=== PATIENT | male | born 2000 | race Caucasian/White ===

== ENCOUNTER 2021-05-16 12:43 | Emergency (ER) | payer OTHER ==
--- NOTE | 2021-05-16 13:48 | XRAY Report ---
PROCEDURE: Finger(s) RT INDICATIONS: Trauma TECHNIQUE: PA hand, 2 views of the small finger acquired. COMPARISON: None. FINDINGS: Bones: There is a minimally displaced fracture at the tuft of the fifth distal phalanx. No suspicious bony lesions. Soft tissues: No suspicious soft tissue calcifications. IMPRESSION: Minimally displaced fracture of the tuft of the fifth distal phalanx. Reviewed by: Vahid Monahan MD on 05/16/2021 12:46 PM AKDT Approved by: Vahid Monahan MD on 05/16/2021 12:46 PM AKDT Station ID: [id number]
--- NOTE | 2021-05-16 14:15 | ED Physician Documentation ---
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 He dropped a heavy object on his right pinky while working just prior to arrival. No other injuries. Pain is severe. He is up-to-date on tetanus. Review of Systems Constitutional: reports: Reviewed and negative Cardiac: reports: Reviewed and negative Respiratory: reports: Reviewed and negative PD PAST MEDICAL HISTORY - Past Medical History Past Medical History: No - Past Surgical History Past Surgical History: No - Present Medications Home Medications: Ambulatory Orders Medication Instructions Recorded Confirmed HYDROcod/ACETAM 5/325 [Howard 5/325] 1 - 2 tab PO Q6H PRN #15 tablet 05/16/21 cephALEXin [Keflex] 500 mg PO Q6H #20 cap 05/16/21 - Allergies Allergies/Adverse Reactions: Allergies Allergy/AdvReac Type Severity Reaction Status Date / Time No Known Drug Allergies Allergy Verified 05/16/21 13:07 - Social History Does the pt smoke?: No Smoking Status: Never smoker Does the pt drink ETOH?: No Does the pt have substance abuse?: No - Immunizations Immunizations are current?: Yes PD ED PE NORMAL - Vitals Vital signs reviewed: Yes - General General: Alert and oriented X 3, No acute distress - Extremities Extremities: Other (The tip of the right pinky is swollen and there is jagged blunt force type laceration on the palmar surface with intact tendon strength and no distal neurovascular compromise.) - Neuro Neuro: Alert and oriented X 3, Normal speech Results - Vitals Vitals: Vital Signs - 24 hr 05/16/21 13:04 Temperature 36.8 C Heart Rate 112 H Respiratory 16 Rate Blood Pressure 162/82 H O2 Saturation 99 Oxygen O2 Source Room air Procedures - Laceration (location) R 5th finger Length in cm: 3 Wound type: Irregular (Jagged stellate laceration measuring 3 cm, On the palmar surface of the right pinky spanning the DIP.) Neurovascular status: Sensory intact, Motor intact, Vascular intact Anesthesia: Lidocaine 1% with epi (Digital block in standard fashion with excellent anesthesia) Wound preparation: Hibiclens, Irrigated copiously NS, Debrided moderately (A small amount of skin and fat had to be debrided to allow closure.) Skin layer closure: Nylon, Interrupted, Size #-0 - enter number (4-0), Sutures - enter # (6) Other: Patient tolerated well, No complications, Neurovascular intact, Tetanus UTD - Splint (location) R 5th finger Splint applied by: Tech Type of splint: Metal foam finger splint Departure - Departure Disposition: 01 Home, Self Care Clinical Impression: Open fracture of phalanx of digit of hand Qualifiers: Encounter type: initial encounter Qualified Code(s): S62.609B - Fracture of unspecified phalanx of unspecified finger, initial encounter for open fracture Finger laceration Qualifiers: Encounter type: initial encounter Finger: little finger Damage to nail status: with damage Foreign body presence: without foreign body Laterality: right Qualified Code(s): S61.316A - Laceration without foreign body of right little finger with damage to nail, initial encounter Condition: Good Record reviewed to determine appropriate education?: Yes Instructions: ED Fx Finger Open, ED Laceration Hand Prescriptions: cephALEXin [Keflex] 500 mg PO Q6H #20 cap HYDROcod/ACETAM 5/325 [Howard 5/325] 1 - 2 tab PO Q6H PRN #15 tablet PRN Reason: Pain Comments: You can keep the current dressing and splints on until Wednesday at which time you can wash briefly with soap and water and then put bacitracin ointment on it which is available [id number]. Then a large Band-Aid and replace the metal foam finger splint. You should have the sutures removed in about 14 days, [place] I sent prescriptions for antibiotics and painkillers to the [facility] pharmacy at the [place] [id number] and [facility] here in [place]. I am prescribing a short course of narcotic pain medication for you. These are potentially dangerous and addictive medications that should be used carefully. These medications may constipate you. Take an tzxm-qlv-vrrfbfe stool softener (docusate) twice daily with plenty of water while taking these medications. If you go 24 hours without a bowel movement, take awnt-ubu-oosovji miralax, per package instructions. Do not drink or drive while taking these medications. If you received narcotic or sedating medications while in the emergency department, do not drive for 24 hours. Store this medication in a safe, secure place and out of reach of children. It is a violation of federal law to give or sell this medication to another person or to use in a manner other than prescribed. The ED will not refill narcotic prescriptions, including prescriptions lost or stolen. To dispose of unwanted medications: 1. [facility] at [address] in [place] has a medication drop box. They accept prescription medications (in pill form) Wednesday through Wednesday 9:00 a.m. to 5:00 p.m. 2. The [facility] accepts prescription medications (in pill form only) for disposal year round. Call for more information. 3. Contact the [facility] for the next [facility] sponsored prescription drug collection event. , [phone], or [phone]; Note that many narcotic pain relievers also contain Tylenol/acetaminophen. Please ensure that your total dose of acetaminophen from all sources does not exceed 3 g (3000 mg) per day. Forms: Activity restrictions
[2021-05-16] MEDS: cephALEXin 250 MG CAPSULE PO STA (14:46)
[2021-05-16 15:05] VITALS: BP 148/75
== END 2021-05-16 15:05 | disposition home or self-care (01) ==
LOC: ED 12:43
DX: S62.606B Fracture of unspecified phalanx of right little finger, initial encounter for open fracture (principal); W20.8XXA Other cause of strike by thrown, projected or falling object, initial encounter; Y99.1 Military activity
CPT/HCPCS: 12002; 73140; 99283; A9270

== ENCOUNTER 2021-07-09 10:42 | Outpatient (CLI) | payer OTHER ==
--- NOTE | 2021-07-09 15:42 | MRI Report ---
PROCEDURE: Hand RT W/O INDICATIONS: RIGHT LITTLE FINGER LAC TECHNIQUE: Noncontrast coronal T1 spin echo and T2 fast spin echo with fat saturation, axial proton density fast spin echo and T2 fast spin echo with fat saturation, sagittal T1 spin echo and STIR through the hand and fingers. COMPARISON: Finger radiographs 05/16/2021. FINDINGS: Image quality: Excellent. Bones: Mild osseous edema is seen within the fifth middle and distal phalanges. Remaining visualized osseous structures are normal in signal intensity. No intra-osseous lesions. Soft tissues: Mild subcutaneous soft tissue edema is seen in the volar aspect of the fifth finger at the level of the middle phalanx. The fifth flexor digitorum superficialis and profundus are intact. V isualized muscles demonstrate normal bulk and internal signal. No intramuscular masses identified. No ganglion cysts. IMPRESSION: 1.Mild osseous edema in the fifth middle and distal phalanges may be related to prior contusions or h ealing nondisplaced fractures. Mild subcutaneous soft tissue edema at the volar aspect of the fifth f zak. 2.No significant ligament or tendon injury is seen. Reviewed by: Vahid Monahan MD on 07/09/2021 3:41 PM PDT Approved by: Vahid Monahan MD on 07/09/2021 3:41 PM PDT Station ID: [id number]
== END 2021-07-09 10:43 | disposition home or self-care (01) ==
LOC: DI 10:42
PROVIDERS: ATTEND Orthopaedic Surgery
DX: S61.216A Laceration without foreign body of right little finger without damage to nail, initial encounter (principal); R93.6 Abnormal findings on diagnostic imaging of limbs; R93.89 Abnormal findings on diagnostic imaging of other specified body structures

== ENCOUNTER 2021-07-09 11:50 | Day surgery (SDC) | payer OTHER ==
[2021-07-09 12:30] LABS: BASOPHILS % (AUTO) 0.5 %; EOSINOPHILS # (AUTO) 0.1 10^3/uL (0.0-0.7); EOSINOPHILS % (AUTO) 1.1 %; HCT - HEMATOCRIT 43.2 % (42.0-52.0); HGB - HEMOGLOBIN 15.8 g/dL (14.0-18.0); LYMPHOCYTES # (AUTO) 1.6 10^3/uL (1.5-3.5); MEAN CORPUSCULAR HEMOGLOBIN 31.3 pg (27.0-31.0); MEAN CORPUSCULAR HGB CONC 36.6 g/dL (32.0-36.0); MEAN CORPUSCULAR VOLUME 85.5 fL (80.0-94.0); MEAN PLATELET VOLUME 10.7 fL (7.4-11.4); MONOCYTES # (AUTO) 0.7 10^3/uL (0.0-1.0); NEUTROPHILS # (AUTO) 4.9 10^3/uL (1.5-6.6); NEUTROPHILS % (AUTO) 66.3 %; PLT - PLATELET COUNT 196 10^3/uL (130-450); RED BLOOD COUNT 5.05 10^6/uL (4.70-6.10); RED CELL DISTRIBUTION WIDTH 12.1 % (12.0-15.0); WHITE BLOOD COUNT 7.4 x10^3/uL (4.8-10.8)
[2021-07-09 12:47] LABS: ALBUMIN 4.8 g/dL (3.2-5.5); ALBUMIN/GLOBULIN RATIO 1.7 (1.0-2.2); BILIRUBIN,TOTAL 1.9 mg/dL (0.2-1.0); CALCIUM 9.6 mg/dL (8.5-10.3); CREATININE 0.9 mg/dL (0.6-1.2); TOTAL PROTEIN 7.7 g/dL (6.7-8.2)
--- NOTE | 2021-07-09 17:22 | ED Physician Documentation ---
PD HPI ABD PAIN - Stated complaint Stated Complaint: ABD PX - Chief complaint Chief Complaint: Abd Pain - History obtained from History obtained from: Patient - Additional information Additional information: Periumbilical and right lower quadrant pain starting noon yesterday. It got better but then got worse again. He has had diarrhea since it started. Is worse with walking and bending over. Never had anything like this before. He is otherwise healthy without abdominal surgeries in the past. No other health issues. He is active duty in the [place]. Appetite has been down today. Review of Systems Ten Systems: 10 systems reviewed and negative Constitutional: denies: Fever, Chills Ears: reports: Reviewed and negative Cardiac: reports: Reviewed and negative Respiratory: reports: Reviewed and negative PD PAST MEDICAL HISTORY - Past Surgical History Past Surgical History: No - Allergies Allergies/Adverse Reactions: Allergies Allergy/AdvReac Type Severity Reaction Status Date / Time No Known Drug Allergies Allergy Verified 05/16/21 13:07 - Social History Does the pt smoke?: No Smoking Status: Never smoker Does the pt drink ETOH?: No Does the pt have substance abuse?: No - Immunizations Immunizations are current?: Yes PD ED PE NORMAL - Vitals Vital signs reviewed: Yes - General General: Alert and oriented X 3, No acute distress - HEENT HEENT: PERRL, EOMI - Neck Neck: Supple, no meningeal sign, No bony TTP - Cardiac Cardiac: RRR, No murmur - Respiratory Respiratory: No respiratory distress, Clear bilaterally - Abdomen Abdomen: Normal bowel sounds, Soft, Other (Focally tender in the right lower quadrant without surgical sign, negative Rovsing sign. No right upper quadrant tenderness.) - Back Back: No CVA TTP, No spinal TTP - Derm Derm: Normal color, Warm and dry - Extremities Extremities: No edema, No calf tenderness / cord - Neuro Neuro: Alert and oriented X 3, Normal speech Results - Vitals Vitals: Vital Signs - 24 hr 07/09/21 07/09/21 07/09/21 12:10 17:41 19:41 Temperature 36.9 C Heart Rate 104 H 77 Respiratory 14 17 17 Rate Blood Pressure 133/76 H 120/81 H O2 Saturation 98 100 07/09/21 20:19 Temperature Heart Rate 80 Respiratory 19 Rate Blood Pressure 124/90 H O2 Saturation 98 Oxygen O2 Source Room air - Labs Labs: Laboratory Tests 07/09/21 07/09/21 07/09/21 12:25 12:25 16:45 WBC 7.4 RBC 5.05 Hgb 15.8 Hct 43.2 MCV 85.5 MCH 31.3 H MCHC 36.6 H RDW 12.1 Plt Count 196 MPV 10.7 Neut # (Auto) 4.9 Lymph # (Auto) 1.6 [place] # (Auto) 0.7 Eos # (Auto) 0.1 Baso # (Auto) 0.0 Absolute Nucleated RBC 0.00 Nucleated RBC % 0.0 Sodium 138 Potassium 4.0 Chloride 102 Carbon Dioxide 26 Anion Gap 10.0 BUN 16 Creatinine 0.9 Estimated GFR (MDRD) 107 Glucose 89 Calcium 9.6 Total Bilirubin 1.9 H AST 19 ALT 31 Alkaline Phosphatase 70 Total Protein 7.7 Albumin 4.8 Globulin 2.9 Albumin/Globulin Ratio 1.7 Lipase 26 Urine Color YELLOW Urine Clarity CLEAR Urine pH 6.5 Ur Specific Andes 1.010 Urine Protein NEGATIVE Urine Glucose (UA) NEGATIVE Urine Ketones NEGATIVE Urine Occult Blood NEGATIVE Urine Nitrite NEGATIVE Urine Bilirubin NEGATIVE Urine Urobilinogen 0.2 (NORMAL) Ur Leukocyte Esterase NEGATIVE Ur Microscopic Review NOT INDICATED Urine Culture Comments NOT INDICATED SARS-CoV-2 (PCR) 07/09/21 19:43 WBC RBC Hgb Hct MCV MCH MCHC RDW Plt Count MPV Neut # (Auto) Lymph # (Auto) [place] # (Auto) Eos # (Auto) Baso # (Auto) Absolute Nucleated RBC Nucleated RBC % Sodium Potassium Chloride Carbon Dioxide Anion Gap BUN Creatinine Estimated GFR (MDRD) Glucose Calcium Total Bilirubin AST ALT Alkaline Phosphatase Total Protein Albumin Globulin Albumin/Globulin Ratio Lipase Urine Color Urine Clarity Urine pH Ur Specific Andes Urine Protein Urine Glucose (UA) Urine Ketones Urine Occult Blood Urine Nitrite Urine Bilirubin Urine Urobilinogen Ur Leukocyte Esterase Ur Microscopic Review Urine Culture Comments SARS-CoV-2 (PCR) NOT DETECTED PD MEDICAL DECISION MAKING - ED course ED course: 21-year-old gentleman presents with right lower quadrant pain unremarkable labs but CT showing uncomplicated appendicitis. Case discussed by phone with Dr. Frederick, our on-call surgeon at approximately 6:50 PM. The OR is open, but the hospital is full. He is going to review the case and make sure he is comfortable with a reasonable degree of certainty with the patient would be discharged postop. Subsequently he ended up taking to the patient to the operating room with the understanding that he may have to do some of his recovery in the emergency department. After surgery Dr. Frederick reported to me that this surgery was relatively uncomplicated. Departure - Departure Disposition: ED Transfer to [facility] Clinical Impression: Appendicitis Qualifiers: Acute appendicitis type: with localized peritonitis Condition: Good Record reviewed to determine appropriate education?: Yes Discharge Date/Time: 07/09/21 20:22
[2021-07-09] MEDS ORDERED: PIPERACILLIN/TAZOBACTAM 3.375 GM in SODIUM CHLORIDE 0.9% MINIBAG 100 ML IV STA (18:49)
--- NOTE | 2021-07-09 18:49 | CT Report ---
PROCEDURE: Abdomen/Pelvis WO INDICATIONS: rlq pain TECHNIQUE: After the administration of contrast, 5 mm thick sections acquired from the diaphragms to the sym physis. 5 mm thick coronal and sagittal reformats were acquired. For radiation dose reduction, the following was used: automated exposure control, adjustment of mA and/or kV according to patient size . COMPARISON: None. FINDINGS: Image quality: Excellent. ABDOMEN: Lung bases: Lung bases are clear. Heart size is normal. Solid organs: Liver: The liver has no mass or intrahepatic biliary ductal dilatation. The portal vein and hepatic veins are patent. Biliary: The gallbladder has no gallstones, pericholecystic fluid, gallbladder wall thickening, or lewis rrounding inflammatory change. [] Pancreas: The pancreas has no mass or ductal dilatation. No surrounding inflammation. Spleen: Normal size. No mass. Adrenal glands: No hypertrophy or nodules. Kidneys: No obstructive calculus or hydronephrosis. No solid mass. No cystic mass. Bowel: The distal esophagus and stomach are normal. The small bowel has a normal caliber and appeara nce. The terminal ileum is normal. The appendix is dilated measuring 10 mm with surrounding inflamm ation consistent with acute appendicitis. There is no evidence of perforation or abscess. Free air/free fluid: No free air or free fluid. Abdominal wall: No abdominal wall mass or hernia. Retroperitoneum: No retroperitoneal or mesenteric adenopathy by size criteria. Aorta and inferior ve na cava are normal in size. Lymph nodes: No adenopathy. Bones: No suspicious bony lesions. No vertebral body compression fractures. PELVIS: Genitourinary: Bladder wall thickness is normal. Miscellaneous: No inguinal hernias or adenopathy. Bones: There is levoscoliosis of the lumbar spine. No vertebral body compression fractures. IMPRESSION: Acute appendicitis without evidence of perforation or abscess. Findings were discussed w bianka Lopez. Reviewed by: Jose Francisco Vicente on 07/09/2021 6:47 PM PDT Approved by: Jose Francisco Vicente on 07/09/2021 6:47 PM PDT Station ID: [id number]
[2021-07-09 18:52] LABS: BILIRUBIN,URINE NEGATIVE (NEGATIVE); GLUCOSE, URINE (UA) NEGATIVE (NEGATIVE); KETONES,URINE (UA) NEGATIVE (NEGATIVE); LEUKOCYTE ESTERASE, URINE NEGATIVE (NEGATIVE); NITRITE,URINE NEGATIVE (NEGATIVE); OCCULT BLOOD,URINE NEGATIVE (NEGATIVE); PH,URINE 6.5 PH (5.0-7.5); PROTEIN,URINE NEGATIVE (NEGATIVE); UROBILINOGEN,URINE 0.2 (NORMAL) E.U./dL (NORMAL)
[2021-07-09 18:54] LABS: CLARITY,URINE CLEAR (CLEAR)
--- NOTE | 2021-07-09 19:39 | ANESTHESIA ---
Pre-Anesthesia VS, & Labs - Diagnosis appendecitis - Procedure laparoscopic appendectomy Vital Signs: Temp Pulse Resp BP Pulse Ox 36.9 C 77 17 120/81 H 100 07/09/21 12:10 07/09/21 17:41 07/09/21 17:41 07/09/21 17:41 07/09/21 17:41 Height: 5 ft 10 in Weight (kg): 81.647 kg Body Mass Index: 25.8 BMI Classification: Overweight - NPO >8 hours Last Fluid Intake: 1814 Last Food Intake: >24 hrs ago - Lab Results Current Lab Results: Laboratory Tests 07/09/21 12:25: Sodium 138, Potassium 4.0, Chloride 102, Carbon Dioxide 26, Anion Gap 10.0, BUN 16, Creatinine 0.9, Estimated GFR (MDRD) 107, Glucose 89, Calcium 9.6, Total Bilirubin 1.9 H, AST 19, ALT 31, Alkaline Phosphatase 70, Total Protein 7.7, Albumin 4.8, Globulin 2.9, Albumin/Globulin Ratio 1.7, Lipase 26 07/09/21 12:25: WBC 7.4, RBC 5.05, Hgb 15.8, Hct 43.2, MCV 85.5, MCH 31.3 H, MCHC 36.6 H, RDW 12.1, Plt Count 196, MPV 10.7, Neut # (Auto) 4.9, Lymph # (Auto) 1.6, Irwin # (Auto) 0.7, Eos # (Auto) 0.1, Baso # (Auto) 0.0, Absolute Nucleated RBC 0.00, Nucleated RBC % 0.0 Lab results reviewed: Yes Fish Bones: 07/09/21 12:25 07/09/21 12:25 Home Medications and Allergies Allergies/Adverse Reactions: Allergies Allergy/AdvReac Type Severity Reaction Status Date / Time No Known Drug Allergies Allergy Verified 05/16/21 13:07 Anes History & Medical History - Anesthetic History Anesthesia Complications: reports: No previous complications Family history of Anesthesia Complications: Denies Family history of Malignant Hyperthermia: Denies - Medical History Cardiovascular: reports: None Pulmonary: reports: None Gastrointestinal: reports: None Urinary: reports: None Musculoskeletal: reports: None Endocrine/Autoimmune: reports: None Blood Disorders: reports: None Skin: reports: None Smoking Status: Never smoker Exam General: Alert, Oriented x3, Cooperative, No acute distress Dental: WNL Mouth Openin Fingerbreadth Neck Mobility: Normal Mallampati classification: II Plan Anesthesia Type: General Consent for Procedure(s) Verified and Reviewed: Yes Code Status: Attempt Resuscitation ASA classification: 2-Mild systemic disease Is this case an emergency?: No
--- NOTE | 2021-07-09 20:06 | HISTORY & PHYSICAL EXAMINATION ---
Chief Complaint - Chief Complaint Chief Complaint: abdominal pain History of Present Illness - Admitted From Admitted From:: ed - History Obtained From Records Reviewed: yes History obtained from: pt Exam Limitations: none - History of Present Illness HPI Comment/Other: 4 days of diarrhea. 36 hours of abdominal pain. ct scan very inflamed appendix with surrounding stranding and fluid. History - Past Medical History Cardiovascular: reports: None Respiratory: reports: None Endocrine/Autoimmune: reports: None GI: reports: None : reports: None Psych: reports: None Musculoskeletal: reports: None Derm: reports: None MRSA Hx?: No - POLST Patient has POLST: No Meds/Allgy - Allergies Allergies/Adverse Reactions: Allergies Allergy/AdvReac Type Severity Reaction Status Date / Time No Known Drug Allergies Allergy Verified 05/16/21 13:07 Review of Systems - Other Findings Other Findings: 10 pt ros as above otherwise unremarkable Exam - Vital Signs Reviewed Vital Signs: Yes Vital Signs: Vital Signs x48h Temp Pulse Resp BP Pulse Ox 07/09/21 19:41 17 07/09/21 17:41 77 17 120/81 H 100 07/09/21 12:10 36.9 C 104 H 14 133/76 H 98 - Physical Exam General Appearance: positive: No acute distress, Alert Eyes Bilateral: positive: PERRL, EOMI Neck: positive: No JVD Respiratory: positive: No respiratory distress, Breath sounds nml Cardiovascular: positive: Regular rate & rhythm Abdomen: positive: No distention, Other (right lower quadrant tenderness) Neurologic/Psychiatric: positive: Oriented x3 Conclusion/Plan - Problem List (1) Appendicitis Conclusion/Plan: plan appendectomy. laparoscopic, possible open. likely drain placement. parq held and consent obtained Qualifiers: Acute appendicitis type: with localized peritonitis - Lab Results Lab results reviewed: Yes Fish Bones: 07/09/21 12:25 07/09/21 12:25 - Diagnostic Imaging Results Diagnostic Imaging Results: positive: Read independently
[2021-07-09] MEDS ORDERED: BUPIVACAINE 0.25% PF 10 ML VIAL SUBQ ONE (20:54)
[2021-07-09] MEDS ORDERED: HYDROmorphone 0.5 MG/0.5 ML SYRINGE IVP PRN ×2 (21:48→21:53)
[2021-07-09] MEDS ORDERED: ONDANSETRON 4 MG/2 ML VIAL IVP PRN ×2 (21:48→21:53)
[2021-07-09] MEDS ORDERED: HYDROcod/ACETAM 5/325 MG TABLET PO PRN (21:48)
[2021-07-09] MEDS ORDERED: LACTATED RINGERS 1,000 ML IV ONE (21:51)
--- NOTE | 2021-07-09 21:52 | OPERATIVE REPORT ---
Operative Report - General Procedure Date: 07/09/21 Planned Procedure: lap appendectomy Pre-Op Diagnosis: appendicitis Procedure Performed: lap appendectomy Post Op Diagnosis: appendicitis - Procedure Note Primary Surgeon: kiki lazo Anesthesia Technique: General ET tube, Local Pathology: appendix Estimated Blood Loss (mL): 10 Drain/Tube Type: Other (none) Indications: appedicitis with localized peritonitis Findings: appendicitis Complications: none - Other Other Information/Narrative: The patient was properly identified brought to the operating room and placed in supine position. The patient was previously given antibiotics. Sequential compression devices were placed. General endotracheal anesthesia was induced. The patient was prepped and draped in a sterile fashion. Local anesthetic was given to incision areas. An infraumbilical incision was made in and proceeded down to the fascia. The fascia was incised lifted upwards and abdomen entered with a Veress needle. CO2 was insufflated to a pressure of 15. A 12 mm trocar was placed with 30 degree scope. There was no evidence of injury from Veress needle or trocar placement. Under direct vision a 5 mm trocar was placed suprapubic and a 5 mm trocar was placed in the right upper quadrant. Appendix was identified and retracted anteriorly. Peritoneal attachments were taken down with careful use of cautery. Appendix was mobilized more anterior. A plane was then created between the mesoappendix and the appendix at the cecum. Appendix was divided with an Endo NATHANIEL intestinal load to include up a small portion of the cecum. The mesoappendix was then divided with an Endo NATHANIEL vascular load. There was secure closure at the cecum and hemostasis was assured. The appendix was brought out. The abdomen was thoroughly irrigated and hemostasis again assured. Trochars were removed under direct vision. Fascia at the infraumbilical site was closed with a running 0 Vicryl suture. Subcutaneous tissue was irrigated and skin reapproximated with buried interrupted 4-0 Monocryl. Dressings were applied. The patient tolerated the procedure well was awakened and brought to recovery in good condition.
[2021-07-09] MEDS ORDERED: fentaNYL 100 MCG/2 ML VIAL IVP PRN (21:53)
[2021-07-09] MEDS ORDERED: NALOXONE 0.4 MG/ML VIAL IVP PRN (21:53)
[2021-07-09] MEDS ORDERED: ATROPINE ABBOJECT 1 MG/10 ML SYRINGE IVP PRN (21:53)
[2021-07-09] MEDS ORDERED: METOCLOPRAMIDE 10 MG/2 ML VIAL IVP PRN (21:53)
[2021-07-09] MEDS ORDERED: MORPHINE 2 MG/ML CARPUJECT IVP PRN (21:53)
[2021-07-09] MEDS ORDERED: ePHEDrine 50 MG/ML VIAL IVP PRN (21:53)
[2021-07-09] MEDS ORDERED: LACTATED RINGERS 1,000 ML IV SCH (22:00)
[2021-07-10 05:33] VITALS: BP 130/77
== END 2021-07-10 05:57 | disposition home or self-care (01) ==
LOC: ED 11:50 → SDS 20:00 → MS3 22:37 → SDS 07-10 05:57
PROVIDERS: ATTEND Surgery
PROC: 0DTJ4ZZ Resection of Appendix, Percutaneous Endoscopic Approach (ICD-10-PCS; principal; 2021-07-09 20:00)
DX: K35.30 Acute appendicitis with localized peritonitis, without perforation or gangrene (principal); Z20.822 Contact with and (suspected) exposure to COVID-19; S61.216A Laceration without foreign body of right little finger without damage to nail, initial encounter; R60.0 Localized edema
CPT/HCPCS: 36415; 44970; 73218; 74176; 80053; 81003; 83690; 85025; 87635; 96365; 99284; 99285; A9270; J7120; 81001; 87086

== ENCOUNTER 2021-11-19 10:44 | Outpatient (CLI) | payer OTHER ==
--- NOTE | 2021-11-19 17:30 | MRI Report ---
PROCEDURE: Knee LT W/O INDICATIONS: PAIN IN LEFT KNEE TECHNIQUE: Noncontrast sagittal PD fast spin echo and T2 fast spin echo with fat saturation, sagittal 3-D gradie nt sequence with fat saturation; coronal T1 spin echo and PD fast spin echo with fat saturation, and axial PD fast spin echo with fat saturation through the knee. COMPARISON: None. FINDINGS: Image quality: Excellent. Menisci: The lateral meniscus is intact. Complex tear of the medial meniscus, with a horizontal compo nent in the posterior horn and body, radial component in the mid body, and a flipped fragment anterio rly. Cruciate ligaments: The anterior and posterior cruciate ligaments appear intact. Medial structures: The MCL, semimembranosus, and anserine tendons are intact. The meniscocapsular rhona ction is intact. Lateral structures: The iliotibial band, biceps tendon, and LCL are intact. Thickening of the LCL cou ld be from prior injury. Intact popliteus tendon. Anterior structures: Superolateral Hoffa's fat pad edema. Extensor mechanism is intact. There is no t ranslation of the tibial tuberosity versus trochlear groove alignment. The medial retinaculum is over all intact. Mild chondromalacia of the patellofemoral compartment is greater than expected for age. No full-thick ness defect. Joint space: Small joint effusion. No Bennett's cyst. IMPRESSION: Complex medial meniscal tear as above. Intact cruciate ligaments. Hoffa's fat pad edema at the superolateral corner suggestive of impingement. Small joint effusion. Early chondromalacia of the patellofemoral compartment. Reviewed by: Jai Reynoso MD on 11/19/2021 5:28 PM PDT Approved by: Jai Reynoso MD on 11/19/2021 5:28 PM PDT Station ID: [id number]
== END 2021-11-19 10:45 | disposition home or self-care (01) ==
LOC: DI 10:44
PROVIDERS: ATTEND Internal Medicine
DX: S83.242A Other tear of medial meniscus, current injury, left knee, initial encounter (principal); M25.462 Effusion, left knee; M22.42 Chondromalacia patellae, left knee

== ENCOUNTER 2022-01-17 10:03 | Emergency (ER) | payer OTHER ==
[2022-01-17 10:42] VITALS: BP 135/81
--- NOTE | 2022-01-17 12:46 | ED Physician Documentation ---
History of Present Illness - Stated complaint Stated Complaint: DIZZINESS,CHILLS - Chief complaint Chief Complaint: General - History obtained from History obtained from: Patient, Family - History of Present Illness Timing: Yesterday Pain level max: 7 Pain level now: 5 - Additonal information Additional information: Patient is a 21-year-old male, active [employer] that had meniscus surgery on 01/14/[facility]. He states that last night he had an episode of chills. He felt lightheaded when he stood up and resolved when he sat down. No chest pain. No shortness of breath. He states increased pain to the knee today. Worse with movement, better with rest. Review of Systems Constitutional: denies: Fever, Chills Nose: denies: Rhinorrhea / runny nose, Congestion Throat: denies: Sore throat Cardiac: denies: Chest pain / pressure, Palpitations Respiratory: denies: Dyspnea, Cough, Wheezing GI: denies: Vomiting, Diarrhea Skin: denies: Rash Musculoskeletal: denies: Neck pain, Back pain Neurologic: denies: Headache PD PAST MEDICAL HISTORY - Past Medical History Cardiovascular: None Respiratory: None Endocrine/Autoimmune: None GI: None : None Psych: None Musculoskeletal: None Derm: None - Past Surgical History Past Surgical History: No - Present Medications Home Medications: Ambulatory Orders Medication Instructions Recorded Confirmed Aspirin [Tsering] 325 mg PO DAILY 01/17/22 01/17/22 Docusate Sodium [Stool Softener] 250 mg PO DAILY 01/17/22 01/17/22 Ibuprofen [Motrin] 1 tablet PO Q8H PRN 01/17/22 01/17/22 oxyCODONE [Roxicodone] 5 mg PO Q4-6H 01/17/22 01/17/22 - Allergies Allergies/Adverse Reactions: Allergies Allergy/AdvReac Type Severity Reaction Status Date / Time No Known Drug Allergies Allergy Verified 01/17/22 10:42 - Social History Does the pt smoke?: No Smoking Status: Never smoker Does the pt drink ETOH?: No Does the pt have substance abuse?: No - Immunizations Immunizations are current?: Yes - POLST Patient has POLST: No PD ED PE NORMAL - Vitals Vital signs reviewed: Yes - General General: Alert and oriented X 3, No acute distress - HEENT HEENT: Moist mucous membranes - Neck Neck: Supple, no meningeal sign - Cardiac Cardiac: RRR, Strong equal pulses - Respiratory Respiratory: No respiratory distress, Clear bilaterally - Abdomen Abdomen: Soft, Non tender, Non distended - Derm Derm: Warm and dry, No rash - Extremities Extremities: No edema, No calf tenderness / cord, Other (Clean, dry, intact incisions to the left knee. No signs of infection.) - Neuro Neuro: Alert and oriented X 3 - Psych Psych: Normal mood, Normal affect Results - Vitals Vitals: Vital Signs - 24 hr 01/17/22 10:36 Temperature 36.8 C Heart Rate 86 Respiratory 14 Rate Blood Pressure 135/81 H O2 Saturation 99 Oxygen O2 Source Room air - Labs Labs: Laboratory Tests 01/17/22 01/17/22 12:42 12:42 WBC 5.5 RBC 4.95 Hgb 14.6 Hct 42.5 MCV 85.9 MCH 29.5 MCHC 34.4 RDW 12.0 Plt Count 208 MPV 11.5 H Neut # (Auto) 3.0 Lymph # (Auto) 1.8 Phelps # (Auto) 0.5 Eos # (Auto) 0.2 Baso # (Auto) 0.0 Absolute Nucleated RBC 0.00 Nucleated RBC % 0.0 Sodium 138 Potassium 4.5 Chloride 103 Carbon Dioxide 28 Anion Gap 7.0 BUN 18 Creatinine 0.7 Estimated GFR (MDRD) 142 Glucose 94 Calcium 9.5 - Rads (name of study) Chest x-ray Radiology: Final report received, EMP read contemporaneously, See rad report PD MEDICAL DECISION MAKING - ED course Complexity details: reviewed results, re-evaluated patient, considered differential, d/w patient, d/w family ED course: No significant findings on chest x-ray, laboratory testing. Symptoms are not consistent with pulmonary embolism. No evidence of joint infection. The incision is clean, dry, intact. No redness to the knee. We will continue supportive care and have him follow-up with his doctor. No hypoxia. No tachycardia. No calf swelling. Patient counseled regarding signs and symptoms for which I believe and urgent re-evaluation would be necessary. Patient with good understanding of and agreement to plan and is comfortable going home at this time This document was made in part using voice recognition software. While efforts are made to proofread this document, sound alike and grammatical errors may occur. Departure - Departure Disposition: 01 Home, Self Care Clinical Impression: Chills, Post-operative pain Condition: Good Instructions: ED Wound Check Post Op No Infec Follow-Up: CHEIKH LARSEN MD [Primary Care Provider] - Within 3 Days Comments: Please follow-up with your orthopedist for further care. Return if you worsen including shortness of breath, chest pain or other new or worrisome symptoms. Discharge Date/Time: 01/17/22 14:06
--- NOTE | 2022-01-17 12:51 | XRAY Report ---
PROCEDURE: Chest 1 View X-Ray INDICATIONS: chills s/p knee surgery TECHNIQUE: One view of the chest was acquired. COMPARISON: None. FINDINGS: Surgical changes and devices: None. Lungs and pleura: No pleural effusions or pneumothorax. Lungs are clear. Mediastinum: Mediastinal contours appear normal. Heart size is normal. Bones and chest wall: No suspicious bony lesions. Mild dextroconvex scoliotic curvature is seen. Ov erlying soft tissues appear unremarkable. IMPRESSION: Unremarkable portable chest, without focal infiltrates. If there is strong clinical concern for a developing or new pulmonary process, please consider a shor t-term follow-up 2 view chest series, performed in deep inspiration. Reviewed by: Cuong Toro MD on 01/17/2022 11:49 AM [facility] Approved by: Cuong Toro MD on 01/17/2022 11:49 AM [facility] Station ID: [id number]
[2022-01-17 12:56] LABS: BASOPHILS % (AUTO) 0.7 %; EOSINOPHILS # (AUTO) 0.2 10^3/uL (0.0-0.7); EOSINOPHILS % (AUTO) 2.7 %; HCT - HEMATOCRIT 42.5 % (42.0-52.0); HGB - HEMOGLOBIN 14.6 g/dL (14.0-18.0); LYMPHOCYTES # (AUTO) 1.8 10^3/uL (1.5-3.5); LYMPHOCYTES % (AUTO) 32.7 %; MEAN CORPUSCULAR HEMOGLOBIN 29.5 pg (27.0-31.0); MEAN CORPUSCULAR HGB CONC 34.4 g/dL (32.0-36.0); MEAN CORPUSCULAR VOLUME 85.9 fL (80.0-94.0); MEAN PLATELET VOLUME 11.5 fL (7.4-11.4); MONOCYTES # (AUTO) 0.5 10^3/uL (0.0-1.0); MONOCYTES % (AUTO) 9.8 %; NEUTROPHILS % (AUTO) 53.9 %; PLT - PLATELET COUNT 208 10^3/uL (130-450); RED BLOOD COUNT 4.95 10^6/uL (4.70-6.10); WHITE BLOOD COUNT 5.5 x10^3/uL (4.8-10.8)
[2022-01-17 13:02] LABS: CALCIUM 9.5 mg/dL (8.5-10.3); CREATININE 0.7 mg/dL (0.6-1.2); POTASSIUM 4.5 mmol/L (3.5-5.0)
== END 2022-01-17 14:06 | disposition home or self-care (01) ==
LOC: ED 10:03
DX: R68.83 Chills (without fever) (principal); G89.18 Other acute postprocedural pain; M25.562 Pain in left knee
CPT/HCPCS: 36415; 80048; 85025; 99282; 99284

== ENCOUNTER 2022-06-22 07:05 | Emergency (ER) | payer OTHER ==
[2022-06-22] MEDS: IBUPROFEN 800 MG TABLET PO STA (07:59)
[2022-06-22] MEDS: ONDANSETRON ODT 4 MG TABLET TL STA (07:59)
--- NOTE | 2022-06-22 09:09 | ED Physician Documentation ---
PD HPI PED ILLNESS - Stated complaint Stated Complaint: C+ - Chief complaint Chief Complaint: Fever - History obtained from History obtained from: Patient - Additional information Additional information: 21-year-old healthy young man developed symptomatic COVID yesterday with a positive home test. He has a sore throat and nausea and high fevers. PD PAST MEDICAL HISTORY - Past Medical History Cardiovascular: None Respiratory: None Endocrine/Autoimmune: None GI: None : None Psych: None Musculoskeletal: None Derm: None - Past Surgical History Past Surgical History: No - Present Medications Home Medications: Ambulatory Orders Medication Instructions Recorded Confirmed Aspirin [Tsering] 325 mg PO DAILY 01/17/22 01/17/22 Docusate Sodium [Stool Softener] 250 mg PO DAILY 01/17/22 01/17/22 Ibuprofen [Motrin] 1 tablet PO Q8H PRN 01/17/22 01/17/22 oxyCODONE [Roxicodone] 5 mg PO Q4-6H 01/17/22 01/17/22 Ibuprofen [Motrin] 800 mg PO Q8H PRN #30 tablet 06/22/22 Ondansetron Odt [Zofran] 4 mg TL Q6H PRN #10 tablet 06/22/22 - Allergies Allergies/Adverse Reactions: Allergies Allergy/AdvReac Type Severity Reaction Status Date / Time No Known Drug Allergies Allergy Verified 06/22/22 07:12 - Social History Does the pt smoke?: No Smoking Status: Never smoker Does the pt drink ETOH?: No Does the pt have substance abuse?: No - Immunizations Immunizations are current?: Yes - POLST Patient has POLST: No PD ED PE NORMAL - Vitals Vital signs reviewed: Yes - General General: Alert and oriented X 3, No acute distress - Derm Derm: No rash - Neuro Neuro: Alert and oriented X 3, lab director 2-12 intact, No motor deficit, No sensory deficit, Normal speech Eye Opening: Spontaneous Motor: Obeys Commands Verbal: Oriented GCS Score: 15 - Psych Psych: Normal mood, Normal affect Results - Vitals Vitals: Vital Signs - 24 hr 06/22/22 07:12 Temperature 39 C H Heart Rate 120 H Respiratory 20 Rate Blood Pressure 123/88 H O2 Saturation 97 Oxygen O2 Source Room air PD Medical Decision Making - ED course ED course: We discussed antiviral medication. He would like to forego it. He has been immunized against COVID so this is not unreasonable as he is otherwise healthy noting his BMI is mildly elevated. Departure - Departure Disposition: 01 Home, Self Care Clinical Impression: COVID-19 Condition: Good Record reviewed to determine appropriate education?: Yes Instructions: ED Viral Syndrome Prescriptions: Ibuprofen [Motrin] 800 mg PO Q8H PRN #30 tablet PRN Reason: PAIN &/OR FEVER Ondansetron Odt [Zofran] 4 mg TL Q6H PRN #10 tablet PRN Reason: Nausea / Vomiting Forms: Activity restrictions
[2022-06-22 09:23] VITALS: BP 122/78
== END 2022-06-22 09:22 | disposition home or self-care (01) ==
LOC: ED 07:05
DX: U07.1 COVID-19 (principal)
CPT/HCPCS: 99282; 99283; A9270; Q0162